=== PATIENT | female | born 1970 | race Caucasian/White ===

== ENCOUNTER 2020-11-21 19:27 | Emergency (ER) | payer BC, OTHER ==
[2020-11-21 20:32] VITALS: BP 130/78; PULSE 67; TEMP 98.4; BMI 25.2
[2020-11-21] MEDS ORDERED: KETOROLAC TROMETHAMINE 60 MG/2 ML VIAL IM ONE (21:27)
[2020-11-21] MEDS ORDERED: KETOROLAC TROMETHAMINE 30 MG/1 ML VIAL ONE (21:38)
== END 2020-11-22 00:03 | disposition left against medical advice (07) ==
LOC: JER 19:27
PROC: 3E0233Z Introduction of Anti-inflammatory into Muscle, Percutaneous Approach (ICD-10-PCS; principal; 2020-11-21)
DX: M54.2 Cervicalgia (principal); M54.9 Dorsalgia, unspecified
CPT/HCPCS: 72131-TC; 99284-25

== ENCOUNTER 2022-11-27 05:38 | Day surgery (SDC) | payer OTHER ==
[2022-11-25 16:29] VITALS: BMI 28.1
[2022-11-27] MEDS ORDERED: FENTANYL CITRATE/PF 50 MCG/ML VIAL ONE (08:38)
[2022-11-27 09:28] VITALS: TEMP 97.8
[2022-11-27 13:54] VITALS: RESP 17
[2022-11-27 15:04] VITALS: BP 119/64; PULSE 60
== END 2022-11-27 10:15 | disposition home or self-care (01) ==
LOC: JASU-ENDO 05:38
PROVIDERS: ATTEND Internal Medicine Gastroenterology
PROC: 0DB48ZX Excision of Esophagogastric Junction, Via Natural or Artificial Opening Endoscopic, Diagnostic (ICD-10-PCS; 2022-11-27)
PROC: 0DB78ZX Excision of Stomach, Pylorus, Via Natural or Artificial Opening Endoscopic, Diagnostic (ICD-10-PCS; 2022-11-27)
PROC: 0DB68ZX Excision of Stomach, Via Natural or Artificial Opening Endoscopic, Diagnostic (ICD-10-PCS; 2022-11-27)
PROC: 0DJD8ZZ Inspection of Lower Intestinal Tract, Via Natural or Artificial Opening Endoscopic (ICD-10-PCS; principal; 2022-11-27 08:30)
DX: Z12.11 Encounter for screening for malignant neoplasm of colon (principal); K21.9 Gastro-esophageal reflux disease without esophagitis; K29.50 Unspecified chronic gastritis without bleeding; R12 Heartburn
CPT/HCPCS: 88305-TC; 88342-TC